=== PATIENT | male | born 1975 | race Caucasian/White ===

== ENCOUNTER → 2018-08-01 | Outpatient (CLI) | payer OTHER ==
[~2018-08-01] MED LIST: IOPAMIDOL (ISOVUE-300) 100 ML BTL ONE
== END ==
LOC: FIMAGING 07:53
PROVIDERS: ATTEND Internal Medicine Hematology & Oncology
DX: C40.22 Malignant neoplasm of long bones of left lower limb (principal)
CPT/HCPCS: Q9967